=== PATIENT | female | born 1950 | race Caucasian/White ===

== ENCOUNTER 2024-04-03 10:02 | Emergency (ER) | payer MEDICARE, OTHER, SELFPAY ==
[2024-04-03 10:04] VITALS: BP 178/100
[2024-04-03 11:26] VITALS: BP 145/81; BMI 32.1
--- NOTE | 2024-04-03 11:29 | EDRN ---
Sarabjit DOOLEY currently at the pts bedside
--- NOTE | 2024-04-03 11:35 | ED.GENMED ---
History of Present Illness
General
Chief Complaint: Musculo-Skeletal Complaint
Time Seen by Provider: 04/03/24 11:08
History of Present Illness
History of Present Illness:
74-year-old female with history of hypertension presents for evaluation of left hand pain and swelling after fall yesterday. Bruising predominantly to the ulnar aspect of the dorsal left hand. Able to move all digits and the wrist.
Review of Systems
Review of Systems
Allergies reviewed?: Yes
All Other Systems: ROS reviewed and negative except as documented in HPI and ROS
Phy Exam
Physical Exam
Physical Exam:
GEN: Well appearing, NAD, WDWN
HEENT: Oral mucosa moist, no scleral icterus
Cardiac: Regular rate
Lung: No respiratory distress, no tachypnea
MSK: Diffuse ecchymosis and swelling to the ulnar aspect of the dorsal left hand, range of motion at the MCP joints x 5 is intact and at the left wrist is also normal. No elbow pain.
Skin: Good color, no pallor or jaundice, no rashes
Neuro: AO x3, moves all extremities freely
Psych: Calm, cooperative
Course
Orders/Labs/Results
Orders:
Orders
04/03/24 10:04
CR Hand - Left Min 3 Views Urgent
Comment:
Reason For Exam: fall, swelling
Vital Signs
Initial and Last Documented VS:
Initial Vital Signs
Temp Pulse Resp BP Pulse Ox
98.2 F 88 16 178/100 95
04/03/24 10:04 04/03/24 10:04 04/03/24 10:04 04/03/24 10:04 04/03/24 10:04
Last Documented Vital Signs
Temp Pulse Resp BP Pulse Ox
98.5 F 82 20 145/81 99
04/03/24 11:26 04/03/24 11:26 04/03/24 11:26 04/03/24 11:26 04/03/24 11:26
MDM/Problems Addressed
MDM/Problems Addressed:
74-year-old female presents after a fall with a hand injury. X-rays show no fracture. I did have to remove her ring due to finger swelling which was done with surgical lubricant and no need for cutting the ring. Discussed supportive care for hand
contusion
*Critical Care Note
Total Time (30-74mins, 75-104mins- exclusive of procedures): Not Applicable
ED Attending Note
-
Portions of this chart may have been created with voice recognition software.� Occasional wrong word or��sound alike� substitutions may have occurred due to the inherent limitations of voice recognition software.
Discharge Plan
Departure
Patient Disposition: Home (Routine Discharge)
Date of Disposition: 04/03/24
Time of Disposition: 11:36
Patient with high blood pressure during this ER visit?: No
Discharge Problem:
Sprain and strain of left hand
Instructions: Sprain
Prescriptions:
No Action
oxycodone 5 mg Tablet
5 mg PO BID PRN (Reason: pain)
Interventions
Interventions:
*Risk Screen - Suicide Last Done: 04/03/24 10:04
*General Assessment Last Done: 04/03/24 10:04
*Neglect/Abuse Screening Last Done: 04/03/24 11:26
ED- Fall Risk Assessment Last Done: 04/03/24 11:26
*ED COVID-19 Vaccine History Last Done: 04/03/24 11:26
*Nursing Disposition Last Done: 04/03/24 11:45
ED-Musculoskeletal Assessment Last Done: 04/03/24 11:26
Discharge Date and Time
Discharge Date/Time: 04/03/24 11:50
Print Language: SERBIAN
== END 2024-04-03 11:50 | disposition home or self-care (01) ==
LOC: EMR 10:02
PROVIDERS: EMERGENCY PHYSICIAN Emergency Medicine; FAMILY PHYSICIAN Nurse Practitioner Family
DX: S66.912A Strain of unspecified muscle, fascia and tendon at wrist and hand level, left hand, initial encounter (principal); X58.XXXA Exposure to other specified factors, initial encounter; I10 Essential (primary) hypertension; M79.642 Pain in left hand
CPT/HCPCS: 99283; 73130